=== PATIENT | male | born 1970 | race Caucasian/White ===

== ENCOUNTER 2021-04-25 09:25 | Day surgery (SDC) | payer BC, SELFPAY ==
[~2021-04-25] VITALS: Ht 167.6 cm; Wt 99.8 kg
[2021-04-25] MEDS ORDERED: MEPERIDINE 100 MG INJ. 100 MG/ML VIAL ONE (11:51)
[2021-04-25] MEDS ORDERED: MIDAZOLAM HCL 5 MG/5 ML VIAL ONE ×2 (11:51→12:12)
[2021-04-25] MEDS: MIDAZOLAM HCL 5 MG/5 ML VIAL IVP ONE ×4 (11:55→12:18)
[2021-04-25] MEDS ORDERED: MEPERIDINE 100 MG INJ. 100 MG/ML VIAL IV ONE (11:58)
[2021-04-25] MEDS ORDERED: MIDAZOLAM HCL 5 MG/5 ML VIAL IVP ONE ×2 (11:58→12:01)
[2021-04-25] MEDS ORDERED: GLYCOPYRROLATE 0.2 MG/ML VIAL IV ONE ×2 (12:11→12:15)
[2021-04-25] MEDS ORDERED: GLYCOPYRROLATE 0.2 MG/ML VIAL ONE (12:20)
[2021-04-25 15:49] VITALS: BP_SYST 110
== END 2021-04-25 13:15 | disposition home or self-care (01) ==
LOC: SDS 09:25 → SMU 10:16 → SDS 13:15
PROVIDERS: ATTEND Colon & Rectal Surgery
DX: Z12.11 Encounter for screening for malignant neoplasm of colon (principal); K21.9 Gastro-esophageal reflux disease without esophagitis; E03.9 Hypothyroidism, unspecified; E78.5 Hyperlipidemia, unspecified; E66.9 Obesity, unspecified; K42.0 Umbilical hernia with obstruction, without gangrene; Z20.822 Contact with and (suspected) exposure to COVID-19; Z79.899 Other long term (current) drug therapy
CPT/HCPCS: 36415; 45378; 87426; 99152; 99153; G0378; J2175; J2250; J3490